=== PATIENT | female | born 1960 | race Caucasian/White ===

== ENCOUNTER 2021-03-10 10:37 | Emergency (ER) | payer OTHER ==
[~2021-03-10 10:37] MED LIST: ASPIR-LOW81 MG PO; ASPIRIN 325MG325 MG PO; ATORVASTATIN CA20 MG PO; BRILINTA 90 MG90 MG PO; IMDUR ER TAB 3030 MG PO; KLOR-CON M1010 MEQ PO; LASIX40 MG PO; LISINOPRIL5 MG PO; PROTONIX40 MG PO; TOPROL XL50 MG PO
[2021-03-10 12:29] LABS: RED BLOOD COUNT 4.6 M/UL (4.00-5.10); WHITE BLOOD COUNT 13.7 K/UL (4.5-11.0)
[2021-03-10 13:02] LABS: BUN/CREATININE RATIO 14 (0-10)
[2021-03-10] MEDS ORDERED: OMNICEF 300 MG300 MG PO (17:57)
[2021-03-10] MEDS ORDERED: IBUPROFEN800 MG PO (17:57)
[2021-03-10] MEDS ORDERED: ZOFRAN ODT 4 MG4 MG PO (17:57)
== END 2021-03-10 18:48 | disposition home or self-care (01) ==
LOC: ER1 10:37
PROVIDERS: Emergency Medicine
DX: J44.0 Chronic obstructive pulmonary disease with (acute) lower respiratory infection (principal); J18.9 Pneumonia, unspecified organism; N39.0 Urinary tract infection, site not specified; E11.9 Type 2 diabetes mellitus without complications; Z20.822 Contact with and (suspected) exposure to COVID-19
CPT/HCPCS: 71045; 71260; 80053; 81001; 82550; 82553; 83605; 83690; 84484; 85025; 87086; 93005; 96374; 96375; 99284; J0696; J2270; J2405; J7030; Q9967; U0002

== ENCOUNTER → 2021-04-10 | Outpatient (CLI) | payer OTHER ==
[~2021-04-10] MED LIST changes: +IBUPROFEN800 MG PO; +OMNICEF 300 MG300 MG PO; +ZOFRAN ODT 4 MG4 MG PO
== END ==
LOC: KOH-I 10:16
DX: J18.9 Pneumonia, unspecified organism (principal); R19.09 Other intra-abdominal and pelvic swelling, mass and lump
CPT/HCPCS: 76856

== ENCOUNTER → 2021-05-08 | Outpatient (CLI) | payer OTHER | LOC: KOH-I 04-10 11:30 | DX: J18.9 Pneumonia, unspecified organism (principal); J98.11 Atelectasis; N83.9 Noninflammatory disorder of ovary, fallopian tube and broad ligament, unspecified | CPT/HCPCS: 71250 ==